=== PATIENT | male | born 1990 | race Caucasian/White ===

== ENCOUNTER 2017-03-13 16:14 | Emergency (ER) | payer BC ==
--- NOTE | 2017-03-13 20:03 | EDM.PDOC ---
ED HPI GENERAL MEDICAL PROBLEM - General Chief Complaint: General Stated Complaint: GROIN PAIN Time Seen by Provider: 03/13/17 18:57 Source of Information: Reports: Patient, RN Notes Reviewed - History of Present Illness INITIAL COMMENTS - FREE TEXT/NARRATIVE: 26 year old male comes in with L scrotal pain that started 2 days ago, worse today, constant pain worse with certain types of motion and walking. No voiding sx. No fever, chills, nausea or vomiting. No known injury. left groin/testes Pain Score (Numeric/FACES): 7 - Related Data Allergies Allergy/AdvReac Type Severity Reaction Status Date / Time No Known Allergies Allergy Verified 03/13/17 17:01 Home Meds: Home Meds Doxycycline [Vibramycin] 100 mg PO Q12HR #20 tablet 03/13/17 [Rx] Past Medical History - Past Health History Medical/Surgical History: Denies Medical/Surgical History - Past Surgical History Other Respiratory Surgeries/Procedures: states "some sort of surgery for my breathing" as an Social & Family History - Family History Family Medical History: Noncontributory - Tobacco Use Smoking Status *Q: Never Smoker - Caffeine Use Caffeine Use: Reports: Coffee - Recreational Drug Use Recreational Drug Use: No ED ROS GENERAL - Review of Systems Review Of Systems: See Below Constitutional: Denies: Fever, Chills, Diaphoresis HEENT: Denies: Throat Pain Respiratory: Denies: Shortness of Breath Cardiovascular: Denies: Chest Pain GI/Abdominal: Denies: Abdominal Pain, Nausea, Vomiting : Reports: Other (no discharge). Denies: Dysuria, Flank Pain, Frequency, Hematuria, Urgency Musculoskeletal: Denies: Back Pain, Joint Pain Skin: Reports: No Symptoms Neurological: Reports: No Symptoms ED EXAM, GENERAL - Physical Exam Exam: See Below General Appearance: Alert, No Apparent Distress Eye Exam: Bilateral Eye: PERRL Throat/Mouth: Normal Inspection Head: Atraumatic. No: Facial Swelling Neck: Supple, Full Range of Motion Respiratory/Chest: No Respiratory Distress, Lungs Clear, Normal Breath Sounds Cardiovascular: Regular Rate, Rhythm GI/Abdominal: Non-Tender (Male) Exam: Scrotum Tenderness (L), Testicular Tenderness (L). No: Scrotal Swelling, Testicular Mass, Testicular Tenderness (R), Urethral Discharge Back Exam: No: CVA Tenderness (L), CVA Tenderness (R) Extremities: Normal Inspection, Normal Range of Motion Neurological: Alert, Oriented, No Motor/Sensory Deficits Skin Exam: Warm, Dry, Normal Color Course - Vital Signs Last Recorded V/S: Last Vital Signs Temp 97.5 F 03/13/17 16:50 Pulse 94 03/13/17 16:50 Resp 18 03/13/17 16:50 BP 147/94 H 03/13/17 16:50 Pulse Ox 100 03/13/17 16:50 - Orders/Labs/Meds Orders: Active Orders 24 hr Category Date Time Status Scrotum and Contents [US] Stat Exams 03/13/17 19:03 Taken Labs: Laboratory Tests 03/13/17 Range/Units 17:06 Urine Color Yellow (Yellow) Urine Appearance Clear (Clear) Urine pH 7.0 (5.0-8.0) Ur Specific [place] 1.025 (1.005-1.030) Urine Protein Negative (Negative) Urine Glucose (UA) Negative (Negative) Urine Ketones Negative (Negative) Urine Occult Blood Negative (Negative) Urine Nitrite Negative (Negative) Urine Bilirubin Negative (Negative) Urine Urobilinogen 0.2 (0.2-1.0) Ur Leukocyte Esterase Negative (Negative) Urine RBC 0-5 (0-5) /hpf Urine WBC 0-5 (0-5) /hpf Ur Epithelial Cells 0-5 (0-5) /hpf Urine Bacteria Few (FEW) /hpf Urine Mucus Few (FEW) /hpf - Re-Assessments/Exams Free Text/Narrative Re-Assessment/Exam: 03/13/17 20:13 ultrasound does show good blood flow,, increased on L, stronglyl suggestive for epididymitis Departure - Departure Time of Disposition: 19:58 Disposition: Home, Self-Care 01 Condition: Fair Clinical Impression: Epididymitis - Discharge Information Prescriptions: Doxycycline [Vibramycin] 100 mg PO Q12HR #20 tablet Instructions: Epididymitis Referrals: PCP,None [Primary Care Provider] - Forms: ED Department Discharge, ED Return to Work/School Form Additional Instructions: advil 800 mg 3 times daily, you may take tylenol in between doses for extra pain relief as needed, doxycycline 100 mg twice daily for 10 days, follow up clinic if not much better withing 5 to 7 days as expected. - My Orders Last 24 Hours: My Active Orders 03/13/17 19:03 Scrotum and Contents [US] Stat - Assessment/Plan Last 24 Hours: My Active Orders 03/13/17 19:03 Scrotum and Contents [US] Stat
--- NOTE | 2017-03-14 11:24 | US ---
Testicular ultrasound: Multiple real-time images of the testicles were obtained. Comparison: No previous study. Testicles have a homogeneous ultrasound appearance. No intratesticular abnormality is identified. Both arterial and venous blood flow are seen. Small left-sided epididymal cyst is seen measuring 3 mm. Increased Doppler blood flow seen within the left epididymis. Small bilateral hydroceles are seen. Measurements: Right testicle: 3.8 x 2.0 x 3.6 cm Left testicle: 3.9 x 2.1 x 3.5 cm Impression: 1. Increased Doppler blood flow within the left epididymis suspicious for epididymitis. Small epididymal cyst is incidentally noted within the left epididymis. 2. Small bilateral hydroceles. Diagnostic code #3 I agree with preliminary report issued by [facility] ([facility] report finalized on 03/13/17, 8:56 PM Central Time)
== END 2017-03-13 20:15 | disposition home or self-care (01) ==
LOC: JD.ED 16:14
DX: N45.1 Epididymitis (principal)
CPT/HCPCS: 76870; 76870-26; 81001; 93975; 99282; 99284-25